=== PATIENT | male | born 2000 | race Caucasian/White ===

== ENCOUNTER 2019-01-21 11:31 | Inpatient (IN) | payer OTHER ==
[~2019-01-21] VITALS: Ht 177.8 cm; Wt 143.2 kg
[~2019-01-21 11:31] MED LIST: ACET325T33 PO; ACET500C5 PO; DOXY-214 PO; HDRP454O TOP; IBUP-1542 PO; IBUP800T48 PO; LEVO750T25 PO; ONDA4TAB14 PO
[2019-01-21] MEDS ORDERED: ACETAMINOPHEN 500 MG TAB PO STA (12:09)
[2019-01-21] MEDS ORDERED: SOD CHLORIDE 0.9% 1,000 ML IV STA (12:09)
[2019-01-21] MEDS ORDERED: ONDANSETRON 4 MG INJ IV STA (12:09)
[2019-01-21] MEDS ORDERED: KETOROLAC 30 MG INJ IV STA (12:09)
[2019-01-21] MEDS ORDERED: CEFTRIAXONE 1 GM/50 ML (PMX) 50 ML IVPB ONE (14:30)
[2019-01-21] MEDS ORDERED: ALBUTEROL 0.5% (NEB) 2.5 MG/0.5 ML AMP INH STA (15:34)
[2019-01-21] MEDS ORDERED: AZITHROMYCIN 500MG/NS (PMX) 250 ML IV STA (15:34)
[2019-01-21] MEDS ORDERED: SODIUM CHLORIDE 0.9% 1L BAG IV* STA (15:34)
[2019-01-21] MEDS ORDERED: IPRATROPIUM (NEB) 0.5 MG/2.5 ML AMP INH STA (15:34)
[2019-01-21] MEDS ORDERED: OXYMETAZOLINE 0.05% NASAL SPRAY (15 ML) NASAL ONE (17:30)
[2019-01-21] MEDS ORDERED: ACETAMINOPHEN 325 MG TAB PO PRN (18:00)
[2019-01-21] MEDS ORDERED: ONDANSETRON 4 MG INJ IV PRN (18:00)
[2019-01-21 18:50] VITALS: BP 134/69; PULSE 104; RESP 18
[2019-01-21] MEDS ORDERED: ZOLPIDEM 5 MG TAB PO PRN (19:00)
[2019-01-21] MEDS ORDERED: POTASSIUM CHLORIDE (SR) 20 MEQ TAB PO STA (19:09)
[2019-01-21 19:43] VITALS: Ht 177.8 cm; Wt 143.2 kg
[2019-01-21 20:00] VITALS: BP 125/61; PULSE 103; RESP 19
[2019-01-21] MEDS: SOD CHLORIDE 0.9% 1,000 ML IV SCH (20:27)
[2019-01-21] MEDS: LEVOFLOXACIN 750MG/D5W (PMX) 150 ML IVPB SCH (21:21)
[2019-01-21] MEDS: ONDANSETRON 4 MG INJ IV PRN (22:42)
[2019-01-22] MEDS ORDERED: morphine 2 MG INJ IV PRN (01:00)
[2019-01-22 02:00] VITALS: BP 116/56; PULSE 118; RESP 18
[2019-01-22] MEDS: ACETAMINOPHEN 325 MG TAB PO PRN ×3 (02:02→18:43)
[2019-01-22 03:34] VITALS: PULSE 104
[2019-01-22] MEDS: SOD CHLORIDE 0.9% 1,000 ML IV SCH ×2 (05:00→15:35)
[2019-01-22] MEDS: PANTOPRAZOLE (EC) 40 MG TAB PO SCH (05:39)
[2019-01-22 07:45] VITALS: BP 136/79; PULSE 111; RESP 18
[2019-01-22] MEDS: ONDANSETRON 4 MG INJ IV PRN ×2 (07:47→18:14)
[2019-01-22] MEDS: LEVOFLOXACIN 750MG/D5W (PMX) 150 ML IVPB SCH (09:59)
[2019-01-22] MEDS: METOCLOPRAMIDE 10 MG INJ IV PRN (11:34)
[2019-01-22 14:20] VITALS: BP 127/63; PULSE 111; RESP 16
[2019-01-22] MEDS ORDERED: MAGNESIUM HYDROXIDE 30ML CUP PO ONE (16:00)
[2019-01-22 20:00] VITALS: BP 152/74; PULSE 98; RESP 18
[2019-01-23] MEDS: SOD CHLORIDE 0.9% 1,000 ML IV SCH ×3 (01:00→21:18)
[2019-01-23 02:00] VITALS: BP 143/78; PULSE 110; RESP 19
[2019-01-23] MEDS: PANTOPRAZOLE (EC) 40 MG TAB PO SCH (05:04)
[2019-01-23 08:00] VITALS: BP 145/70; PULSE 109; RESP 19
[2019-01-23] MEDS: LEVOFLOXACIN 750MG/D5W (PMX) 150 ML IVPB SCH (09:09)
[2019-01-23] MEDS: ONDANSETRON 4 MG INJ IV PRN ×3 (09:21→21:18)
[2019-01-23] MEDS ORDERED: ALBUTEROL/IPRATROPIUM (NEB) 3 ML AMP HHN PRN (12:30)
[2019-01-23 14:00] VITALS: BP 136/75; PULSE 116; RESP 19
[2019-01-23] MEDS: PIPER-TAZO 3.375 GM IV (PMX) 100 ML IVPB SCH ×2 (15:03→21:18)
[2019-01-23] MEDS: METOCLOPRAMIDE 10 MG INJ IV PRN ×2 (15:04→23:22)
[2019-01-23] MEDS: ACETAMINOPHEN 325 MG TAB PO PRN ×2 (15:05→23:22)
[2019-01-23 20:52] VITALS: BP 133/71; PULSE 100; RESP 18
[2019-01-24 02:00] VITALS: BP 129/63; PULSE 89; RESP 17
[2019-01-24] MEDS: PIPER-TAZO 3.375 GM IV (PMX) 100 ML IVPB SCH ×3 (05:13→23:01)
[2019-01-24] MEDS: PANTOPRAZOLE (EC) 40 MG TAB PO SCH (05:13)
[2019-01-24] MEDS: SOD CHLORIDE 0.9% 1,000 ML IV SCH ×2 (07:00→14:23)
[2019-01-24 08:00] VITALS: BP 132/69; PULSE 110; RESP 20
[2019-01-24] MEDS: LEVOFLOXACIN 750MG/D5W (PMX) 150 ML IVPB SCH (08:50)
[2019-01-24 14:00] VITALS: BP 123/56; PULSE 82; RESP 20
[2019-01-24 19:53] VITALS: BP 155/69; PULSE 97; RESP 18
[2019-01-25 01:52] VITALS: BP 127/60; PULSE 104; RESP 18
[2019-01-25] MEDS: PIPER-TAZO 3.375 GM IV (PMX) 100 ML IVPB SCH ×3 (06:02→22:04)
[2019-01-25] MEDS: PANTOPRAZOLE (EC) 40 MG TAB PO SCH (06:02)
[2019-01-25] MEDS: LEVOFLOXACIN 750MG/D5W (PMX) 150 ML IVPB SCH (10:29)
[2019-01-25 12:02] VITALS: BP 126/60; PULSE 99; RESP 20
[2019-01-25 20:43] VITALS: BP 131/61; PULSE 89; RESP 19
[2019-01-26 02:32] VITALS: BP 127/58; PULSE 82; RESP 20
[2019-01-26] MEDS: PIPER-TAZO 3.375 GM IV (PMX) 100 ML IVPB SCH ×3 (06:35→20:23)
[2019-01-26] MEDS: PANTOPRAZOLE (EC) 40 MG TAB PO SCH (06:35)
[2019-01-26] MEDS: LEVOFLOXACIN 750MG/D5W (PMX) 150 ML IVPB SCH (08:52)
[2019-01-26 08:53] VITALS: BP 138/54; PULSE 90; RESP 18
[2019-01-26] MEDS: ENOXAPARIN 40 MG/0.4 ML SYG SC SCH (12:51)
[2019-01-26] MEDS: METHYLPREDNISOLONE 40 MG INJ IV SCH ×2 (13:10→20:23)
[2019-01-26 15:09] VITALS: BP 104/56; PULSE 77; RESP 18
[2019-01-26] MEDS ORDERED: IOHEXOL 100 ML ONE (15:16)
[2019-01-26] MEDS ORDERED: SOD CHLORIDE 0.9% 100 ML ONE (15:16)
[2019-01-26 20:00] VITALS: BP 153/89; PULSE 88
[2019-01-27 02:00] VITALS: BP 128/61; PULSE 73; RESP 17
[2019-01-27] MEDS: PANTOPRAZOLE (EC) 40 MG TAB PO SCH (05:42)
[2019-01-27] MEDS: METHYLPREDNISOLONE 40 MG INJ IV SCH (05:42)
[2019-01-27] MEDS: PIPER-TAZO 3.375 GM IV (PMX) 100 ML IVPB SCH (05:42)
[2019-01-27 07:28] VITALS: BP 129/76; PULSE 66; RESP 18
[2019-01-27] MEDS: LEVOFLOXACIN 750MG/D5W (PMX) 150 ML IVPB SCH (09:24)
[2019-01-27] MEDS: ENOXAPARIN 40 MG/0.4 ML SYG SC SCH (09:29)
== END 2019-01-27 13:47 | disposition home or self-care (01) | DRG 193 ==
LOC: FTE 11:31 → 5EC 17:41
PROVIDERS: ADMIT Internal Medicine; ATTEND Internal Medicine
DX: J18.9 Pneumonia, unspecified organism (principal); J96.01 Acute respiratory failure with hypoxia; Z68.42 Body mass index [BMI] 45.0-49.9, adult; E66.8 Other obesity; Y95 Nosocomial condition
CPT/HCPCS: 36415; 36600; 71045; 71046; 71275; 76705; 80048; 80053; 81001; 82803; 83605; 83690; 85025; 86308; 87400; 87880; 93306; 94644; 96361; 96365; 96366; 96368; 96375; 97161; J0456; J0696; J1650; J1885; J1956; J2405; J2543; J2765; J2920; J7030; Q9967